=== PATIENT | male | born 1980 | race African-American/Black ===

== ENCOUNTER 2018-06-08 11:14 | Emergency (ER) | payer MEDICAID ==
[~2018-06-08] VITALS: Ht 172.7 cm; Wt 77.1 kg
[2018-06-08 11:29] VITALS: BP 114/87
[2018-06-08] MEDS ORDERED: KETOROLAC TROMETH 60MG/2ML VIAL IM ONE (13:00)
== END 2018-06-08 13:47 | disposition home or self-care (01) ==
LOC: ER 11:14
DX: S82.144A Nondisplaced bicondylar fracture of right tibia, initial encounter for closed fracture (principal); F17.210 Nicotine dependence, cigarettes, uncomplicated; X58.XXXA Exposure to other specified factors, initial encounter; Y93.89 Activity, other specified; Y99.8 Other external cause status; Y92.89 Other specified places as the place of occurrence of the external cause
CPT/HCPCS: 29505; 73562; 96372; 99284; J1885